=== PATIENT | male | born 1985 | race Caucasian/White ===

== ENCOUNTER 2024-11-10 00:01 | Emergency (ER) | payer OTHER, SELFPAY ==
--- NOTE | ~2024-11-10 | CT_ITS ---
CLINICAL HISTORY: complicated left inguinal hernia Exam: CT abdomen and pelvis without intravenous contrast. Comparison: None. Findings: Study limited by lack of intravenous contrast. Specifically, evaluation of the vascular tree, solid abdominal organs, and gastrointestinal tract be limited without IV contrast administration. CT abdomen: No infiltrates within the lung bases. No acute bony lesions. No renal or ureteral calculi identified no hydronephrosis or perinephric stranding. Unenhanced liver, spleen, pancreas, gallbladder, and adrenal glands are unremarkable. Concentric wall thickening of the distal esophagus with mild air-filled distention of the distal esophagus. Large amount of ingested contents within the stomach. No dilated small bowel. No free fluid or free air. CT pelvis: Appendix is normal. No colonic wall thickening or pericolonic inflammatory stranding. No hernia identified. Specifically, no left inguinal hernia. There are numerous mildly prominent lymph nodes in the left inguinal region measuring up to 15 mm in short axis. These all have a fatty hilum. No free fluid or free air. Urinary bladder is unremarkable. Impression: 1. Wall thickening of the distal esophagus suggests a nonspecific esophagitis. Given the large amount of ingested contents within the stomach, reflux esophagitis should be considered. 2. No left inguinal hernia identified. 3. Mildly prominent left inguinal lymph nodes which appear to be reactive in nature. Correlation with a localized infectious or inflammatory process of the left hemipelvis or left lower extremity is suggested. This document has been electronically signed by: Braxton Varela MD on 11/10/2024 01:40:50
[2024-11-10 00:05] VITALS: BP 129/78; PULSE 89; RESP 18; TEMP 37; O2SAT 97; BMI 30.1
[2024-11-10 00:33] LABS: Basophils Percent Auto 0.4 % (0-2); Eosinophils Absolute Auto 0.1 X10*3/uL (0.0-0.4); Eosinophils Percent Auto 1.2 % (0-4); Hematocrit 42.2 % (42.0-52.0); Hemoglobin 15.3 g/dl (14.0-18.0); Imm Gran Abs Auto 0.03 X10*3/uL (0.00-0.03); Imm Gran Pct Auto 0.3 % (0.0-0.4); Lymphocytes Absolute Auto 1.9 X10*3/uL (1.2-4.9); Lymphocytes Percent Auto 18.5 % (20-40); MANUAL DIFF FLAG NO; Mean Corpuscular HGB Conc 36.3 g/dl (31.0-36.0); Mean Corpuscular Hemoglobin 31.2 pg (27.0-33.0); Mean Corpuscular Volume 85.9 fL (80.0-98.0); Mean Platelet Volume 9.3 fL (9.4-12.4); Monocytes Absolute Auto 0.4 X10*3/uL (0.1-1.2); Monocytes Percent Auto 3.9 % (2-11); Neutrophils Absolute Auto 7.8 x10*3/uL (2.0-8.3); Neutrophils Percent Auto 75.7 % (45-73); Platelet Count 242 X10*3/uL (160-400); Red Blood Count 4.91 X10*6/uL (4.60-5.80); Red Cell Distribution Width 11.9 % (11.0-16.0); White Blood Count 10.2 X10*3/uL (4.8-10.8)
--- NOTE | 2024-11-10 00:38 | ED.GENADULT ---
HPI - General Adult General Chief complaint: Skin/Abscess/Foreign Body Stated complaint: lump on groin Time Seen by Provider: 11/10/24 00:22 Source: patient Mode of arrival: ambulatory Limitations: no limitations History of Present Illness ED Provider: DR. Diaz HPI narrative: 39-year-old male came in for multiple complaints. Draining cyst on in left thigh area, patient had history of abscess on the thigh in the past. Feel left groin mass, patient was history of testicular cancer And concern of recurrence. No fever, no chills, no nausea, no vomiting, normal bowel movement, passing flatus, no dysuria, no frequency urination. Related Data Previous Rx's ?Medication ?Instructions ?Recorded doxycycline hyclate 100 mg tablet 100 mg PO BID #14 tabs 11/10/24 Allergies Allergy/AdvReac Type Severity Reaction Status Date / Time No Known Allergies Allergy Verified 11/10/24 00:07 [No Known Allergies*] Review of Systems Review of Systems: All other systems are reviewed and are negative Constitutional: Reports as per HPI and Reports no additional constitutional complaints Eyes: Reports as per HPI and Reports no additional eye complaints Reports system reviewed and no additional complaints, except as documented Cardiovascular: Reports as per HPI and Reports no additional cardiovascular complaints Respiratory: Reports as per HPI and Reports no additional respiratory complaints Gastrointestinal: Reports as per HPI and Reports no additional gastrointestinal complaints Genitourinary: Reports no additional female genitourinary complaints Musculoskeletal: Reports no additional musculoskeletal complaints Skin/Breast: Reports system reviewed and no additional complaints, except as docu Psychiatric: Reports no additional psychiatric complaints Endocrine: Reports no additional endocrine complaints Hematologic/Lymphatic: Reports no additional hematologic/lymphatic complaints Allergic/Immunologic: Reports no additional allergic/immunologic complaints Reports system reviewed and no additional complaints, except as documented and Reports Abnormal speech present [facility] Social History Social History Advance Directives: No Advance Directives Information Provided: Yes Do you have a plan to hurt others: No Plan Physical Exam ED Vital Signs: Vital Signs - 24 hr 11/10/24 00:05 Temperature 98.6 F Pulse Rate 89 Respiratory Rate 18 Blood Pressure 129/78 Pulse Oximetry 97 Oxygen Delivery Method Room Air BMI result Body Mass Index 30.1 Vital signs have been reviewed and appear to be correct. Blood pressure elevated. Heart rate normal. Respiratory rate normal. Temperature normal. Oxygen saturation normal. Appearance: Alert. Oriented X3. No acute distress. Head: Normal external exam. Normocephalic. Atraumatic. No Antonio signs noted. No raccoon eyes noted Eyes: PERRLA. EOMI. Conjunctiva and sclera normal. Eyelids normal. ENT: TM's Normal. Pharynx normal. Uvula midline. Moist mucous membranes. No trismus noted. No drooling noted. No muffled voice noted. Neck: Normal inspection. Neck supple. FROM. No adenopathy. Thyroid Normal. No meningeal signs. No neck mass noted. CVS: Normal heart rate and rhythm. Heart sound normal. No murmurs noted. Pulses normal throughout. Respiratory: No respiratory distress. Painless inspiration. Breath sounds normal. No wheezes/rales/rhonchi noted. Chest nontender. No accessory muscle usage noted or decreased air movement noted. Abdomen: Soft and nontender. Bowel sounds normal in all 4 quadrants. No distention noted. No organomegaly noted. No visible injury noted. : S/p left oophorectomy, circumcised, no scrotal tenderness or redness or swelling. Do not appreciate a mass or hernia in the scrotal sac. Back: No CVA tenderness. Full range of motion noted. Skin: Skin warm and dry. Normal skin color. Normal skin turgor. No rashes/lesions/lacerations noted. Extremities: Inner side of the upper left thigh 2 x 2 cm area of fluctuation. Neuro: Oriented X 3. Cranial nerve exam: II-XII are grossly intact No motor deficit. No sensory deficit. Reflexes normal. Course Reevaluation(s) Reevaluation #1: s/p left thigh abscess I and D, will start on doxycycline. CT abdomen pelvis shows no inguinal hernia or mass. still awaiting for official reading signed out to Dr. Greco to check on the CAT scan. Time: 01:03 Procedures Abscess I/D Site: lower extremity ( Upper inner side of the left thigh) Side (if applicable): left Local Anesthetic: lidocaine 1% Amount of anesthesia used (mL): 5 Technique: incised with blade Amount of fluid expressed (mL): 3 Sent for culture/gram staining?: No Irrigation: No Packing used?: none Medical Decision Making Differential Diagnosis Differential Diagnoses: The differential diagnosis associated with the presentation includes ( complicated left inguinal hernia.) Admission/Observation Consideration of admission/observation: Escalation of care including admission/observation considered Lab Data MDM Lab Attestation statement: I reviewed the patient's lab results. 11/10/24 00:28 11/10/24 00:28 Labs: Lab Results 11/10/24 Range/Units 00:28 WBC 10.2 (4.8-10.8) X10*3/uL RBC 4.91 (4.60-5.80) X10*6/uL Hgb 15.3 (14.0-18.0) g/dl Hct 42.2 (42.0-52.0) % MCV 85.9 (80.0-98.0) fL MCH 31.2 (27.0-33.0) pg MCHC 36.3 H (31.0-36.0) g/dl RDW 11.9 (11.0-16.0) % Plt Count 242 (160-400) X10*3/uL MPV 9.3 L (9.4-12.4) fL Immature Gran % (Auto) 0.3 (0.0-0.4) % Neut % (Auto) 75.7 H (45-73) % Lymph % (Auto) 18.5 L (20-40) % [place] % (Auto) 3.9 (2-11) % Eos % (Auto) 1.2 (0-4) % Baso % (Auto) 0.4 (0-2) % Lymph # (Auto) 1.9 (1.2-4.9) X10*3/uL [place] # (Auto) 0.4 (0.1-1.2) X10*3/uL Eos # (Auto) 0.1 (0.0-0.4) X10*3/uL Baso # (Auto) 0.0 (0.0-0.2) X10*3/uL Abs Immat Gran (auto) 0.03 (0.00-0.03) X10*3/uL Absolute Neuts (auto) 7.8 (2.0-8.3) x10*3/uL Absolute Nucleated RBC 0.000 (0.0-0.012) X10*3/uL Nucleated RBC % (auto) 0.0 (0.0-0.2) /100WBC Sodium 141 (135-145) mmol/L Potassium 3.4 (3.3-5.1) mmol/L Chloride 107 (96-108) mmol/L Carbon Dioxide 24 (22-29) mmol/L Anion Gap 13 (12-20) BUN 9 (9-16) mg/dL Creatinine 0.95 (0.5-1.4) mg/dL Estim Creat Clear Calc 120.9 Estimated GFR > 60 Random Glucose 122 H (60-115) mg/dL Calcium 9.1 (8.4-10.2) mg/dL Total Bilirubin 0.3 (0.0-1.0) mg/dL AST 16 (5-37) U/L ALT 13 (0-40) U/L Alkaline Phosphatase 71 (39-117) U/L Total Protein 6.7 (6.5-8.0) g/dL Albumin 4.3 (3.5-5.0) g/dL Independent Interpretation I performed an independent interpretation of an: CT Scan ( abdomen pelvis:) Radiology Impression Discussion of test interpretation with radiology: I have reviewed the radiologist's reading. Radiologist Impression: CT abdomen: No infiltrates within the lung bases. No acute bony lesions. No renal or ureteral calculi identified no hydronephrosis or perinephric stranding. Unenhanced liver, spleen, pancreas, gallbladder, and adrenal glands are unremarkable. Concentric wall thickening of the distal esophagus with mild air-filled distention of the distal esophagus. Large amount of ingested contents within the stomach. No dilated small bowel. No free fluid or free air. CT pelvis: Appendix is normal. No colonic wall thickening or pericolonic inflammatory stranding. No hernia identified. Specifically, no left inguinal hernia. There are numerous mildly prominent lymph nodes in the left inguinal region measuring up to 15 mm in short axis. These all have a fatty hilum. No free fluid or free air. Urinary bladder is unremarkable. Impression: 1. Wall thickening of the distal esophagus suggests a nonspecific esophagitis. Given the large amount of ingested contents within the stomach, reflux esophagitis should be considered. 2. No left inguinal hernia identified. 3. Mildly prominent left inguinal lymph nodes which appear to be reactive in nature. Correlation with a localized infectious or inflammatory process of the left hemipelvis or left lower extremity is suggested. Discharge Plan Discharge Clinical Impression: Abscess of skin or subcutaneous tissue, Lymphadenopathy, inguinal Patient Disposition: Home, Self-Care Instructions: Abscess (ED) Additional Instructions: Sitz bath warm water and Epson salt twice a day for a week. Prescriptions: New doxycycline hyclate 100 mg tablet 100 mg PO BID Qty: 14 0RF Referrals: Alex Ruano MD [Primary Care Provider] - Print Language: Martiniquais
[2024-11-10 00:49] LABS: Alanine Aminotransferase 13 U/L (0-40); Albumin Level 4.3 g/dL (3.5-5.0); Alkaline Phosphatase 71 U/L (39-117); Anion Gap 13 (12-20); Aspartate Amino Transferase 16 U/L (5-37); Bilirubin Total 0.3 mg/dL (0.0-1.0); Blood Urea Nitrogen 9 mg/dL (9-16); Calcium 9.1 mg/dL (8.4-10.2); Carbon Dioxide 24 mmol/L (22-29); Chloride 107 mmol/L (96-108); Creatinine Clr Calc Pharmacy 120.9; Estimated Glomerular Filt Rate > 60; Glucose Random 122 mg/dL (60-115); Potassium 3.4 mmol/L (3.3-5.1); Sodium 141 mmol/L (135-145); Total Protein 6.7 g/dL (6.5-8.0)
[2024-11-10] MEDS: Doxycycline Monohydrate 100 MG CAPSULE PO (01:53)
[2024-11-10] MEDS: Lidocaine HCl 1 % MPF 5 ML VIAL SUBCUT (01:54)
[2024-11-10 01:55] VITALS: BP 129/78; PULSE 89; RESP 18; TEMP 37; O2SAT 97
== END 2024-11-10 01:55 | disposition home or self-care (01) ==
PROVIDERS: Emergency Medicine; Emergency Provider Emergency Medicine; PCP Student in an Organized Health Care Education/Training Program
DX: L02.214 Cutaneous abscess of groin (principal); R59.1 Generalized enlarged lymph nodes; R19.04 Left lower quadrant abdominal swelling, mass and lump
CPT/HCPCS: 10060; 36415; 74176; 80053; 85025; 99282; 99284; J2003

== ENCOUNTER → 2024-11-10 00:36 | Outpatient (BNV) | payer OTHER, SELFPAY | PROVIDERS: Emergency Provider Emergency Medicine; PCP Student in an Organized Health Care Education/Training Program; Visit Provider Radiology Diagnostic Radiology | DX: K22.89 Other specified disease of esophagus (principal) | CPT/HCPCS: 74176 ==